=== PATIENT | male | born 1965 | race Two or more races ===

== ENCOUNTER 2017-08-12 11:27 | Emergency (ER) | payer OTHER ==
[2017-08-12 11:34] VITALS: BP 131/80; PULSE 85; TEMP 97; O2SAT 98
[2017-08-12 11:35] VITALS: BMI 27.3
[2017-08-12] MEDS ORDERED: Lidocaine 1% Inj (20ml) IJ ONE (11:55)
[2017-08-12] MEDS ORDERED: Povidone Iodine Oint 10% Foilpak UD ONE (12:04)
--- NOTE | 2017-08-12 12:40 | ED PDOC ---
HPI: Skin/Bite Injury Time Seen by Provider: 08/12/17 11:38 Chief Complaint (Nursing): Abnormal Skin Integrity Chief Complaint (Provider): Pain/Swelling History Per: Patient History/Exam Limitations: no limitations Onset/Duration Of Symptoms: Days (x 3days) Current Symptoms Are (Timing): Still Present Additional Complaint(s): 52 y/o male presents to the emergency department with complain of painful swelling to the left lower back that worsened over the past 3 days. Denies fever. Reports he had infected cyst drained in the past and now returns with similar symptoms. Past Medical History Vital Signs: Last Vital Signs Temp 97 F L 08/12/17 11:33 Pulse 85 08/12/17 11:33 Resp BP 131/80 08/12/17 11:33 Pulse Ox 98 08/12/17 13:25 - Medical History PMH: No Chronic Diseases - Surgical History Surgical History: No Surg Hx - Family History Family History: States: No Known Family Hx - Social History Current smoker - smoking cessation education provided: Yes (Light smoker) SMOKER/PACKS PER DAY:: 1 (<10 cigarettes per day, smoking since 25 years) Alcohol: None Drugs: Denies - Home Medications Home Medications: Ambulatory Orders Medication Instructions Recorded Naproxen [Naprosyn] 500 mg PO Q12H #20 tab 08/12/17 Sulfamethoxazole/Trimethoprim 1 tab PO BID #20 tab 08/12/17 [Bactrim DS 800 mg-160 mg] - Allergies Allergies/Adverse Reactions: Allergies Allergy/AdvReac Type Severity Reaction Status Date / Time No Known Allergies Allergy Verified 08/12/17 11:46 Review of Systems ROS Statement: Except As Marked, All Systems Reviewed And Found Negative (all negative unless stated in HPI) Constitutional: Negative for: Fever Musculoskeletal: Positive for: Back Pain (Lower back pain with painful swelling) Skin: Positive for: Other (Painful cyst in lower back pain) Physical Exam - Reviewed Nursing Documentation Reviewed: Yes Vital Signs Reviewed: Yes - Physical Exam Appears: Positive for: Non-toxic, No Acute Distress Head Exam: Positive for: ATRAUMATIC, NORMAL INSPECTION, NORMOCEPHALIC Back: Positive for: Other (Left lower back 3cm by 3cm fluctuant erythematous area) - ECG O2 Sat by Pulse Oximetry: 98 (RA) Pulse Ox Interpretation: Normal Medical Decision Making Medical Decision Making: Time: 11:56 Initial Impression: Initial Plan: --Lidocaine 1% 3ml IJ --Wood culture and gram stain --Ed Nitrous Oxide via mask Scribe Attestation: Documented by Harjit August, acting as a scribe for Kenroy Winn MD. Provider Scribe Attestation: All medical record entries made by the Scribe were at my direction and personally dictated by me. I have reviewed the chart and agree that the record accurately reflects my personal performance of the history, physical exam, medical decision making, and the department course for this patient. I have also personally directed, reviewed, and agree with the discharge instructions and disposition. Disposition - Clinical Impression Clinical Impression: Infected sebaceous cyst - Patient ED Disposition Is Patient to be Admitted: No - Disposition Referrals: Radha Cornejo MD [Staff Provider] - Disposition: Routine/Home Disposition Time: 13:00 Condition: FAIR Prescriptions: Naproxen [Naprosyn] 500 mg PO Q12H #20 tab Sulfamethoxazole/Trimethoprim [Bactrim DS 800 mg-160 mg] 1 tab PO BID #20 tab Instructions: Abscess (ED), Cyst (ED) Forms: [facility] (Congolese) Incision and Drainage - Time Time Performed: 12:10 - Procedure Procedure-Incision & Drainage: 2cm x 2cm incision made with expression of large amount purulent material - Location Location: Dorsal (Back) - Anesthetic Anesthetic: Lidocaine 1% (4 to 5 ccs of 1 % lidocaine used to anesthetize area as well as nitrous oxide) - Procedure Procedure: cm incision (2cm x 2cm) - Drained Drained: ml pus - Post-procedure Post procedure: Dressed (packing gauze inserted)
== END 2017-08-12 13:00 | disposition home or self-care (01) ==
LOC: H.ER 11:27
DX: L72.3 Sebaceous cyst (principal)

== ENCOUNTER 2017-08-13 11:34 | Emergency (ER) | payer OTHER ==
[2017-08-13 11:34] VITALS: BMI 27.3
[2017-08-13 11:39] VITALS: BP 140/77; PULSE 84; RESP 18; TEMP 98.8; O2SAT 99
--- NOTE | 2017-08-13 12:25 | ED PDOC ---
HPI: Wound Care - HPI Time Seen by Provider: 08/13/17 12:08 Chief Complaint (Nursing): Wound Check Chief Complaint (Provider): Wound Check History Per: Patient Exam Limitations: no limitations Onset/Duration Of Symptoms: Days (x2) Current Symptoms Are (Timing): Better Additional Complaint(s): Yoseph is a 52 y/o male who presents to the ED for a wound check. He was seen here on 08/12 and had an I & D. He denies any fever or surrounding erythema at the site. Reports taking his antibiotics as prescribed. Patient notes the pain has improved. PMD: Dr. Fields Past Medical History Reviewed: Historical Data, Nursing Documentation, Vital Signs Vital Signs: Last Vital Signs Temp 98.8 F 08/13/17 11:37 Pulse 84 08/13/17 11:37 Resp 18 08/13/17 11:37 BP 140/77 08/13/17 11:37 Pulse Ox 99 08/13/17 11:37 - Family History Family History: States: Unknown Family Hx - Home Medications Home Medications: Ambulatory Orders Medication Instructions Recorded Naproxen [Naprosyn] 500 mg PO Q12H #20 tab 08/12/17 Sulfamethoxazole/Trimethoprim 1 tab PO BID #20 tab 08/12/17 [Bactrim DS 800 mg-160 mg] - Allergies Allergies/Adverse Reactions: Allergies Allergy/AdvReac Type Severity Reaction Status Date / Time No Known Allergies Allergy Verified 08/12/17 11:46 Review of Systems ROS Statement: Except As Marked, All Systems Reviewed And Found Negative Constitutional: Negative for: Fever Skin: Positive for: Other (Wound site appears clean and dry, no erythema surrounding) Physical Exam - Reviewed Nursing Documentation Reviewed: Yes Vital Signs Reviewed: Yes - Physical Exam Appears: Positive for: Well, Non-toxic, No Acute Distress Head Exam: Positive for: ATRAUMATIC, NORMAL INSPECTION, NORMOCEPHALIC Skin: Positive for: Normal Color (with granulation tissue at the base of the wound. No surrounding erythema ), Warm, Dry Eye Exam: Positive for: Normal appearance Neck: Positive for: Normal Respiratory: Negative for: Respiratory Distress Neurologic/Psych: Positive for: Alert - ECG O2 Sat by Pulse Oximetry: 99 (RA) Pulse Ox Interpretation: Normal Medical Decision Making Medical Decision Making: Clinical Impression: Wound check, abscess Time: 12:20 Plan: Pulled out packing from wound, and placed new dressing. Advised patient to continue antibiotic. Counseling was provided and all questions were answered regarding diagnosis and need for follow up. There is agreement to discharge plan. Return if symptoms persist or worsen. Scribe Attestation: Documented by Lazara Dillard, acting as a scribe for Susan Cantu PA-C Provider Scribe Attestation: All medical record entries made by the Scribe were at my direction and personally dictated by me. I have reviewed the chart and agree that the record accurately reflects my personal performance of the history, physical exam, medical decision making, and the department course for this patient. I have also personally directed, reviewed, and agree with the discharge instructions and disposition. Disposition - Clinical Impression Clinical Impression: Wound check, abscess - Patient ED Disposition Is Patient to be Admitted: No Counseled Patient/Family Regarding: Diagnosis, Need For Followup - Disposition Disposition: Routine/Home Disposition Time: 12:20 Condition: STABLE Instructions: Abscess Follow-up (ED) Forms: [employer] (Kazakh) Print Language: MAORI
== END 2017-08-13 12:17 | disposition home or self-care (01) ==
LOC: H.ER 11:34
DX: M54.9 Dorsalgia, unspecified (principal)